=== PATIENT | female | born 1995 | race Caucasian/White ===

== ENCOUNTER 2017-11-27 09:05 | Emergency (ER) | payer OTHER ==
[~2017-11-27] VITALS: Ht 170.2 cm; Wt 61.2 kg
--- NOTE | 2017-11-27 09:13 | NUR ---
AAOX4, AMBULATORY IN A STEADY GAIT TO ED BED 16, PT IS COMPLAINING OF BLOOD NOTED IN HER STOOL THIS MORNING. NO OTHER COMPLAINTS. NAD VSS RR EVEN AND UNLABORED. PENDING ER MD REYES
--- NOTE | 2017-11-27 09:14 | NUR ---
DR. KWON AT BEDSIDE FOR EVALUATION.
[2017-11-27 09:54] LABS: BASOPHILS % (AUTO) 0.5 % (0.0-2.0); EOSINOPHILS % (AUTO) 2.3 % (0.0-6.0); HEMATOCRIT 39 % (33-45); LYMPHOCYTES # (AUTO) 1.4 /CMM (0.8-4.8); LYMPHOCYTES % (AUTO) 18.5 % (20.0-44.0); MEAN CORPUSCULAR HEMOGLOBIN 32 PG (26.0-33.0); MEAN CORPUSCULAR HGB CONC 33 g/dl (31.0-36.0); MEAN CORPUSCULAR VOLUME 95 fL (82-100); MONOCYTES # (AUTO) 0.6 /CMM (0.1-1.30); MONOCYTES % (AUTO) 7.5 % (2.0-12.0); NEUTROPHILS # (AUTO) 5.3 /CMM (1.8-8.9); NEUTROPHILS % (AUTO) 71.2 % (43.0-81.0); PLATELET COUNT (AUTO) 255 /CMM (150-450); RDW COEFFICIENT OF VARIATION 11.6 (11.5-15.0); RED BLOOD CELL COUNT(AUTO) 4.11 MIL/uL (4.0-5.2); WHITE BLOOD COUNT (AUTO) 7.4 K/uL (4.3-11.0)
[2017-11-27 10:24] VITALS: BP 112/80
--- NOTE | 2017-11-27 10:25 | NUR ---
Patient discharged to home in stable condition. Written and verbal after care instructions given. Patient verbalizes understanding of instruction.
== END 2017-11-27 10:24 | disposition home or self-care (01) ==
LOC: ER 09:10
DX: K62.5 Hemorrhage of anus and rectum (principal); Z98.818 Other dental procedure status
CPT/HCPCS: 36415; 84703; 85025; 99284; A4606; Z7610